=== PATIENT | male | born 1990 | race Caucasian/White ===

== ENCOUNTER 2020-08-05 11:42 | Emergency (ER) | payer SELFPAY ==
[~2020-08-05] VITALS: Ht 190.5 cm; Wt 89.8 kg
[2020-08-05] MEDS ORDERED: DIPH,PERTUSS(ACELL),TET VAC/PF 0.5 ML IM-VACC ONE ×2 (12:16→12:30)
--- NOTE | 2020-08-05 12:21 | NUR ---
PT WAS PLAYING WITH CAT 2 WEEKS AGO WHEN HIS CAT BIT HIM. OVERTIME WOUND BECAME INFECTED ROXY DIRECTED HIM TO ED
--- NOTE | 2020-08-05 12:21 | NUR ---
PT REFUSES SPLINT FOR HAND WOUND.
[2020-08-05] MEDS ORDERED: NEOSPORIN OINT. PKT 1 PACKET ONE (12:24)
--- NOTE | 2020-08-05 12:27 | NUR ---
RONEY GALVEZ CLEANSED WOUND AND WRAPPED UP HAND.
[2020-08-05 12:38] LABS: BASOPHILS % (AUTO) 1 % (0-1); EOSINOPHILS % (AUTO) 5 % (1-7); LYMPHOCYTES % (AUTO) 27 % (22-44); MEAN CORPUSCULAR HEMOGLOBIN 32.1 pg (27.5-34.5); MEAN CORPUSCULAR HGB CONC 33.9 g/dL (33.2-36.2); MEAN PLATELET VOLUME 8.2 fL (7.4-10.4); MONOCYTES % (AUTO) 7 % (2-9); NEUTROPHILS % (AUTO) 61 % (42-75); PLATELET COUNT 237 x10^3/uL (130-400); RED CELL DISTRIBUTION WIDTH 12.9 % (9.4-14.8)
[2020-08-05 12:43] LABS: MD NO
[2020-08-05 13:08] VITALS: BP 125/77
== END 2020-08-05 13:23 | disposition home or self-care (01) ==
LOC: ED 12:20
DX: L03.113 Cellulitis of right upper limb (principal); T63.091A Toxic effect of venom of other snake, accidental (unintentional), initial encounter; Y92.89 Other specified places as the place of occurrence of the external cause
CPT/HCPCS: 36415; 85025; 90471; 90715; 99283

== ENCOUNTER 2020-08-27 12:29 | Emergency (ER) | payer SELFPAY ==
[~2020-08-27] VITALS: Ht 190.5 cm; Wt 90.0 kg
[2020-08-27 15:15] VITALS: BP 148/86
--- NOTE | 2020-08-27 15:30 | NUR ---
general maintenance helper: attempted to call pt to triage for sling placement and D/C, unable to locate pt in lobby or BR
--- NOTE | 2020-08-27 16:00 | NUR ---
NO ANSWER X2
== END 2020-08-27 17:16 | disposition home or self-care (01) ==
LOC: ED 17:10
DX: S46.911A Strain of unspecified muscle, fascia and tendon at shoulder and upper arm level, right arm, initial encounter (principal); X58.XXXA Exposure to other specified factors, initial encounter; Y93.89 Activity, other specified; Y92.009 Unspecified place in unspecified non-institutional (private) residence as the place of occurrence of the external cause; Y99.8 Other external cause status
CPT/HCPCS: 99283